=== PATIENT | male | born 1995 | race Caucasian/White ===

== ENCOUNTER 2016-12-19 08:30 | Emergency (ER) | payer BC, OTHER ==
[~2016-12-19] VITALS: Ht 167.6 cm; Wt 70.8 kg
[2016-12-19] MEDS ORDERED: IMODIUM A-D2 M2 PO (09:47)
[2016-12-19] MEDS ORDERED: TRIAMCINOLONE A15 G1 TOP (09:53)
== END 2016-12-19 10:11 | disposition home or self-care (01) ==
LOC: ED 08:30
DX: R19.7 Diarrhea, unspecified (principal); Z87.891 Personal history of nicotine dependence
CPT/HCPCS: 80053; 81001; 83690; 85025; 99283

== ENCOUNTER 2017-01-10 13:35 | Emergency (ER) | payer BC, OTHER ==
[~2017-01-10] VITALS: Ht 167.6 cm; Wt 70.8 kg
[~2017-01-10 13:35] MED LIST: IMODIUM A-D2 M2 PO; TRIAMCINOLONE A15 G1 TOP
[2017-01-10] MEDS ORDERED: IBUPROFEN800 MG PO (14:03)
== END 2017-01-10 14:11 | disposition home or self-care (01) ==
LOC: ED 13:35
DX: Z00.8 Encounter for other general examination (principal)

== ENCOUNTER 2021-07-05 13:47 | Emergency (ER) | payer OTHER, BC ==
[~2021-07-05] VITALS: Ht 167.6 cm; Wt 70.8 kg
[~2021-07-05 13:47] MED LIST changes: +IBUPROFEN800 MG PO
== END 2021-07-05 17:10 | disposition home or self-care (01) ==
LOC: ED 13:47
DX: S92.352A Displaced fracture of fifth metatarsal bone, left foot, initial encounter for closed fracture (principal); F17.200 Nicotine dependence, unspecified, uncomplicated; W17.89XA Other fall from one level to another, initial encounter; Y93.I9 Activity, other involving external motion
CPT/HCPCS: 73630; 99283-25; A9270

== ENCOUNTER 2023-03-31 08:28 | Emergency (ER) | payer SELFPAY ==
[~2023-03-31] VITALS: Ht 167.6 cm; Wt 68.0 kg
[2023-03-31 08:43] LABS: BASOPHILS 0.6 % (0-2); EOSINOPHILS 1.3 % (0-6); HEMATOCRIT 43.3 % (35.0-50.0); HEMOGLOBIN 14.8 g/dL (12.0-18.0); LYMPHOCYTES 27.5 % (24-44); MCH 31.2 (27-36); MCHC 34.1 g/dl (30-36); MCV 91.7 fl (81-99); MONOCYTES 8.2 % (0-12); NEUTROPHILS 62.4 % (39-80); PLATELET COUNT 248 K/uL (140-440); RBC 4.73 M/ul (4.3-5.7)
[2023-03-31 08:54] LABS: ALBUMIN 3.9 g/dL (3.4-5.0); ALBUMIN/GLOBULIN RATIO 1.15 (1.1-2.4); ALCOHOL, MEDICAL <3 ng/dL (<3); ALKALINE PHOSPHATASE 89 U/L (46-116); ALT (SGPT) 32 U/L (14-59); ANION GAP 14.5 (7-21); AST (SGOT) 34 U/L (15-37); BILIRUBIN, TOTAL 0.6 ng/dL (0.2-1.0); CALCIUM 8.3 mg/dL (8.5-10.1); CARBON DIOXIDE 24 mmol/L (21-32); CHLORIDE 103 mmol/L (98-107); CREATININE, SERUM 0.97 mg/dL (0.70-1.30); GLOMERULAR FILTRATION RATE,EST 110 mL/min (>60); MAGNESIUM 1.6 mg/dL (1.8-2.4); POTASSIUM 3.5 mmol/L (3.5-5.1); PROTEIN, TOTAL 7.3 g/dL (6.4-8.2); UREA NITROGEN 10 mg/dL (7-18)
[2023-03-31 09:00] LABS: BILIRUBIN, URINE NEGATIVE (negative); BLOOD/HGB, URINE MODERATE (Negative); KETONE, URINE NEGATIVE (Negative); LEUK ESTERASE, URINE NEGATIVE (negative); NITRITE, URINE NEGATIVE (negative); PH, URINE 5.5 (5-7)
[2023-03-31 09:09] LABS: BACTERIA, URINE NONE SEEN /hpf (negative); CASTS, URINE NONE SEEN \\lpf; COLLECTION TYPE, URINE CLEAN CATCH; CRYSTALS, URINE NONE SEEN (0-1+); EPITHELIAL CELLS, URINE NONE SEEN /lpf (0-1+); REFLEX CULTURE, URINE No (No)
[2023-03-31 09:55] LABS: AMPHETAMINES, URINE NEGATIVE (NEGATIVE); BARBITURATES, URINE NEGATIVE (NEGATIVE); BENZODIAZEPINE, URINE NEGATIVE (NEGATIVE); BUPRENORPHINE, URINE NEGATIVE (NEGATIVE); CANNABINOID, URINE POSITIVE (NEGATIVE); COCAINE, URINE NEGATIVE (NEGATIVE); ECSTASY, URINE NEGATIVE (NEGATIVE); FENTANYL, URINE NEGATIVE (NEGATIVE); METHADONE, URINE NEGATIVE (NEGATIVE); OPIATES, URINE NEGATIVE (NEGATIVE); OXYCODONE, URINE NEGATIVE (NEGATIVE); PHENCYCLIDINE, URINE NEGATIVE (NEGATIVE)
[2023-03-31 10:25] VITALS: BP 129/117
== END 2023-03-31 10:25 | disposition home or self-care (01) ==
LOC: ED 08:28
PROVIDERS: Emergency Medicine
DX: R56.9 Unspecified convulsions (principal); F17.200 Nicotine dependence, unspecified, uncomplicated; Z87.820 Personal history of traumatic brain injury
CPT/HCPCS: 36415; 70470; 80053; 80307; 81001; 83735; 85025; G0480; J2060; Q9967

== ENCOUNTER 2023-12-08 19:51 | Emergency (ER) | payer SELFPAY ==
[~2023-12-08] VITALS: Ht 167.6 cm; Wt 66.7 kg
[2023-12-08] MEDS ORDERED: AMP/SULBACTAM SOD 3 GM VIAL IV ONE (20:57)
[2023-12-08] MEDS ORDERED: AMP/SULBACTAM SOD 3 GM in SODIUM CHLORIDE 0.9% 100 ML IV ONE (21:00)
[2023-12-08] MEDS ORDERED: DIPHTH,PERTUSS(ACELL),TET VAC 0.5 ML SYRINGE IM ONE (21:00)
[2023-12-08 21:06] LABS: HEMATOCRIT 42.4 % (35.0-50.0); HEMOGLOBIN 14.3 g/dL (12.0-18.0); MCH 31.5 (27-36)
[2023-12-08 21:09] LABS: BASOPHILS 0.2 % (0-2); EOSINOPHILS 0.1 % (0-6); LYMPHOCYTES 7.1 % (24-44); MCHC 33.6 g/dl (30-36); MCV 93.5 fl (81-99); MONOCYTES 8.6 % (0-12); PLATELET COUNT 258 K/uL (140-440); RBC 4.53 M/ul (4.3-5.7); RDW 13.4 (10.5-15.0)
[2023-12-08] MEDS ORDERED: AMOX TR-K CLV1 EAC1 PO (21:33)
[2023-12-08] MEDS ORDERED: AMOXICILLIN/CLAVULANATE K 875 MG HOME.PACK PO ONE (21:45)
[2023-12-08 21:48] VITALS: BP 116/80
== END 2023-12-08 22:01 | disposition home or self-care (01) ==
LOC: ED 19:51
PROVIDERS: Emergency Medicine
DX: S61.205A Unspecified open wound of left ring finger without damage to nail, initial encounter (principal); L08.9 Local infection of the skin and subcutaneous tissue, unspecified; F17.200 Nicotine dependence, unspecified, uncomplicated; Y04.8XXA Assault by other bodily force, initial encounter
CPT/HCPCS: 36415; 73130; 85025; 90471; 90715; 96365; 99283-25; J0295

== ENCOUNTER 2024-07-06 08:52 | Emergency (ER) | payer SELFPAY ==
[~2024-07-06] VITALS: Ht 167.6 cm; Wt 68.0 kg
[~2024-07-06 08:52] MED LIST changes: +AMOX TR-K CLV1 EAC1 PO
[2024-07-06 09:27] LABS: BASOPHILS 0.2 % (0-2); EOSINOPHILS 0.1 % (0-6); HEMATOCRIT 41.4 % (35.0-50.0); HEMOGLOBIN 14.6 g/dL (12.0-18.0); LYMPHOCYTES 5.4 % (24-44); MCH 33.3 (27-36); MCHC 35.1 g/dl (30-36); MCV 94.8 fl (81-99); MONOCYTES 7.3 % (0-12); PLATELET COUNT 275 K/uL (140-440); RBC 4.37 M/ul (4.3-5.7); RDW 13.2 (10.5-15.0)
[2024-07-06 09:40] LABS: ANION GAP 15.2 (7-21); BUN/CREATININE RATIO 16.85 (6.0-28.6); CALCIUM 8.7 mg/dL (8.5-10.1); CREATININE, SERUM 0.89 mg/dL (0.70-1.30); POTASSIUM 4.2 mmol/L (3.5-5.1)
[2024-07-06] MEDS ORDERED: ondansetron HCL 4 MG/2 ML VIAL IV ONE (10:15)
[2024-07-06] MEDS ORDERED: KEPPRA500 MG PO (10:42)
[2024-07-06 10:58] VITALS: BP 121/109
== END 2024-07-06 10:59 | disposition home or self-care (01) ==
LOC: ED 08:52
PROVIDERS: Emergency Medicine
DX: G40.409 Other generalized epilepsy and epileptic syndromes, not intractable, without status epilepticus (principal); F17.200 Nicotine dependence, unspecified, uncomplicated
CPT/HCPCS: 36415; 80048; 85025; 96374; 99284-25; J2405

== ENCOUNTER 2024-07-23 11:04 | Emergency (ER) | payer SELFPAY ==
[~2024-07-23] VITALS: Ht 167.6 cm; Wt 71.6 kg
[~2024-07-23 11:04] MED LIST changes: +KEPPRA500 MG PO
[2024-07-23] MEDS ORDERED: levETIRAcetam 500 MG/5 ML VIAL IV ONE ×3 (11:05→15:15)
[2024-07-23] MEDS ORDERED: FENTANYL CITRATE-0.9 % NACL/PF 100 ML IV ONE (11:08)
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
[2024-07-23] MEDS ORDERED: propofoL 200 MG/20 ML VIAL ONE (11:16)
[2024-07-23 11:22] LABS: BASOPHILS 0.5 % (0-2); EOSINOPHILS 0.1 % (0-6); HEMATOCRIT 48.1 % (35.0-50.0); HEMOGLOBIN 15.8 g/dL (12.0-18.0); LYMPHOCYTES 17.3 % (24-44); MCH 32.1 (27-36); MCHC 32.9 g/dl (30-36); MCV 97.7 fl (81-99); MONOCYTES 4.9 % (0-12); NEUTROPHILS 77.2 % (39-80); PLATELET COUNT 350 K/uL (140-440); RBC 4.92 M/ul (4.3-5.7); RDW 13.1 (10.5-15.0)
[2024-07-23 11:43] LABS: ALBUMIN 4.5 g/dL (3.4-5.0); ALBUMIN/GLOBULIN RATIO 1.22 (1.1-2.4); ANION GAP 23.9 (7-21); BILIRUBIN, TOTAL 0.5 mg/dL (0.2-1.0); BUN/CREATININE RATIO 13.39 (6.0-28.6); CALCIUM 8.6 mg/dL (8.5-10.1); CREATININE, SERUM 1.12 mg/dL (0.70-1.30); POTASSIUM 3.9 mmol/L (3.5-5.1); PROTEIN, TOTAL 8.2 g/dL (6.4-8.2)
[2024-07-23 11:43] LABS: BASE EXCESS, BLOOD GAS -8.9 mmol/L (-2-2); O2 SATURATION, BLOOD GAS 99.6 % (95.0-100.0); PCO2, BLOOD GAS 40.6 mmHg (35-45); PH, BLOOD GAS 7.25 (7.35-7.45); PO2, BLOOD GAS 139 mmHg (80-100); TOTAL CO2, BLOOD GAS 19.2
[2024-07-23] MEDS ORDERED: HYDROmorphone HCL 1 MG/ML SYR IV ONE (11:45)
[2024-07-23] MEDS ORDERED: propofoL 100 ML IV SCH (11:45)
[2024-07-23] MEDS ORDERED: FENTANYL CITRATE-0.9 % NACL/PF 100 ML IV SCH (11:45)
[2024-07-23] MEDS ORDERED: propofoL 200 MG/20 ML VIAL IV ONE (11:45)
[2024-07-23 11:47] LABS: ACETAMINOPHEN 0 ug/mL (10-30); SALICYLATE 1.8 mg/dL (2.8-20.0)
[2024-07-23] MEDS ORDERED: SODIUM CHLORIDE 0.9% 1,000 ML IV PRN (12:00)
[2024-07-23] MEDS ORDERED: LACTATED RINGER'S 1,000 ML IV ONE (12:00)
[2024-07-23 12:34] LABS: BILIRUBIN, URINE NEGATIVE (negative); BLOOD/HGB, URINE MODERATE (Negative); KETONE, URINE NEGATIVE (Negative); LEUK ESTERASE, URINE NEGATIVE (negative); NITRITE, URINE NEGATIVE (negative)
[2024-07-23 12:42] LABS: BACTERIA, URINE NONE SEEN /hpf (negative); CASTS, URINE GRANULAR 1+ \\lpf; CRYSTALS, URINE NONE SEEN (0-1+); EPITHELIAL CELLS, URINE SQUAMOUS 1+ /lpf (0-1+); WHITE BLOOD CELLS, URINE 0-1 /HPF (0-5)
[2024-07-23 12:43] LABS: CANNABINOID, URINE POSITIVE (NEGATIVE); COLLECTION TYPE, URINE CLEAN CATCH; METHADONE, URINE NEGATIVE (NEGATIVE); PHENCYCLIDINE, URINE NEGATIVE (NEGATIVE); REFLEX CULTURE, URINE No (No)
[2024-07-23 12:47] LABS: AMPHETAMINES, URINE NEGATIVE (NEGATIVE); BARBITURATES, URINE NEGATIVE (NEGATIVE); BENZODIAZEPINE, URINE POSITIVE (NEGATIVE); BUPRENORPHINE, URINE NEGATIVE (NEGATIVE); COCAINE, URINE NEGATIVE (NEGATIVE); ECSTASY, URINE NEGATIVE (NEGATIVE); FENTANYL, URINE NEGATIVE (NEGATIVE); OPIATES, URINE NEGATIVE (NEGATIVE); OXYCODONE, URINE NEGATIVE (NEGATIVE)
[2024-07-23] MEDS ORDERED: fentaNYL citrate 100 MCG/2 ML VIAL IV ONE (14:00)
[2024-07-23 16:57] VITALS: BP 115/78
== END 2024-07-23 16:57 | disposition short-term general hospital (02) ==
LOC: ED 11:04
PROVIDERS: Emergency Medicine
DX: G40.901 Epilepsy, unspecified, not intractable, with status epilepticus (principal); F17.200 Nicotine dependence, unspecified, uncomplicated
CPT/HCPCS: 36415; 36600; 51702; 70450; 71045; 80053; 80307; 81001; 82803; 85025; 94799; 99285-25; G0480; J1171; J1953; J2704; J3010; J7030; J7121

== ENCOUNTER 2024-08-14 06:29 | Emergency (ER) | payer OTHER ==
[~2024-08-14] VITALS: Ht 167.6 cm; Wt 75.9 kg
--- OUTSIDE RECORDS SUMMARY | 2024-08-14 06:35 | XMS ---
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 ETania VISIT COUNT (12 MO.) [address] [place] [address] TOTAL 4 NOTE: Visits indicate total known visits. ED/UCC VISIT TRACKING (12 MO.) 08/14/2024 06:29 [facility] TYPE: Emergency COMPLAINT: - SEIZURE 07/23/2024 11:04 [facility] TYPE: Emergency COMPLAINT: - SEIZURE DIAGNOSES: - Epilepsy, unspecified, not intractable, with status epilepticus - Nicotine dependence, unspecified, uncomplicated - Unspecified convulsions 07/06/2024 08:52 [facility] TYPE: Emergency [...] initial encounter INPATIENT VISIT TRACKING (12 MO.) 07/23/2024 18:52 [facility] TYPE: Medical Surgical COMPLAINT: - status epilepticus DIAGNOSES: - status epilepticus [email or web address]
[2024-08-14] MEDS ORDERED: levETIRAcetam 500 MG/5 ML VIAL IV ONE (06:45)
[2024-08-14] MEDS ORDERED: KEPPRA500 MG PO (06:51)
[2024-08-14 06:52] LABS: BASOPHILS 0.2 % (0-2); EOSINOPHILS 0.3 % (0-6); HEMOGLOBIN 14.7 g/dL (12.0-18.0); LYMPHOCYTES 3.9 % (24-44); MCH 32.1 (27-36); MCHC 34.9 g/dl (30-36); MCV 91.9 fl (81-99); MONOCYTES 3.6 % (0-12); PLATELET COUNT 389 K/uL (140-440); RBC 4.57 M/ul (4.3-5.7); RDW 12.6 (10.5-15.0)
[2024-08-14 06:54] VITALS: BP 110/70
[2024-08-14 07:07] LABS: ALBUMIN 4.1 g/dL (3.4-5.0); ALBUMIN/GLOBULIN RATIO 1.14 (1.1-2.4); ALCOHOL, MEDICAL <3 ng/dL (<3); ALKALINE PHOSPHATASE 76 U/L (46-116); ALT (SGPT) 48 U/L (14-59); ANION GAP 16.3 (7-21); AST (SGOT) 32 U/L (15-37); BILIRUBIN, TOTAL 0.3 mg/dL (0.2-1.0); BUN/CREATININE RATIO 12.62 (6.0-28.6); CALCIUM 9.1 mg/dL (8.5-10.1); CARBON DIOXIDE 23 mmol/L (21-32); CHLORIDE 99 mmol/L (98-107); CREATININE, SERUM 1.03 mg/dL (0.70-1.30); GLOMERULAR FILTRATION RATE,EST 101 mL/min (>60); MAGNESIUM 1.5 mg/dL (1.8-2.4); POTASSIUM 4.3 mmol/L (3.5-5.1); PROTEIN, TOTAL 7.7 g/dL (6.4-8.2); UREA NITROGEN 13 mg/dL (7-18)
[2024-08-15] MEDS ORDERED: MAGNESIUM OXID400 M1 PO (07:16)
== END 2024-08-14 06:55 | disposition left against medical advice (07) ==
LOC: ED 06:29
PROVIDERS: Family Medicine
DX: R56.9 Unspecified convulsions (principal); F17.200 Nicotine dependence, unspecified, uncomplicated
CPT/HCPCS: 36415; 80053; 80307; 83735; 85025; 99284; G0480